=== PATIENT | male | born 2000 | race African-American/Black ===

== ENCOUNTER 2021-04-03 16:35 | Emergency (ER) | payer OTHER, SELFPAY ==
[~2021-04-03 16:35] MED LIST: Iopamidol 370 76% 100 ML VIAL ONE
[2021-04-03 17:08] LABS: Mean Corpuscular HGB CONC 33.5 g/dL (32.0-36.0); Mean Corpuscular Hemoglobin 30.2 pg (27.0-31.0); Mean Platelet Volume 7.6 fL (7.4-10.4); Platelet Count 359 thou/uL (130-400); RBC Distribution Width 10.7 % (11.5-14.5); Red Blood Cell (RBC) Count 4.99 mill/uL (4.70-6.10); White Blood Cell (WBC) Count 8.9 thou/uL (4.8-10.8)
[2021-04-03] MEDS ORDERED: Ondansetron PF 4 MG/2 ML Vial ONE (17:09)
[2021-04-03 17:11] LABS: ALT (SGPT) 20 U/L (8-55); AST (SGOT) 20 U/L (5-34); Alcohol Less than 10 mg/dL (Less than 10); Alkaline Phosphatase 77 U/L (40-110); Anion Gap 13 mmol/L (10-20); BUN (Urea Nitrogen) 10 mg/dL (8.9-20.6); Bilirubin, Total 0.4 mg/dL (0.2-1.2); Calc. Creatinine Clearance 0 mL/min (70-130); Calcium 9.6 mg/dL (7.8-10.44); Carbon Dioxide 23 mmol/L (22-29); Chloride 104 mmol/L (98-107); Globulin 3.4 g/dL (2.4-3.5); Glucose 121 mg/dL (70-105); Lipase 40 U/L (8-78); Potassium 3.4 mmol/L (3.5-5.1); Protein, Total 7.4 g/dL (6.0-8.3); Sodium 137 mmol/L (136-145)
[2021-04-03 17:19] LABS: INR-International Normal Ratio 1.1; PTT 26.2 sec (22.9-36.1); Prothrombin Time 13.8 sec (12.0-14.7)
[2021-04-03 17:34] LABS: Eosinophils 3 % (0-10); Lymphocytes 50 % (21-51); MDiff Complete? YES; Monocytes 1 % (0-10); Neutrophil 46 % (42-75)
[2021-04-03] MEDS ORDERED: traMADol HCl 50 MG TAB ONE (19:13)
== END 2021-04-03 19:20 | disposition home or self-care (01) ==
LOC: NAV ERS 16:35
DX: S20.211A Contusion of right front wall of thorax, initial encounter (principal); F17.210 Nicotine dependence, cigarettes, uncomplicated; V86.65XA Passenger of 3- or 4- wheeled all-terrain vehicle (ATV) injured in nontraffic accident, initial encounter
CPT/HCPCS: 71045; 71260; 72170; 74177; 80053; 80307; 83690; 85025; 85610; 85730; 94760; 94799; 96374; J2405; Q9967

== ENCOUNTER 2022-12-18 21:19 | Emergency (ER) | payer BC, SELFPAY ==
[2022-12-18] MEDS ORDERED: Acetaminophen 500 MG TAB ONE (21:42)
[2022-12-18] MEDS ORDERED: Lidocaine 1% w/Epinephrine 1:100K 20 ML VIAL ONE (22:57)
== END 2022-12-19 00:50 | disposition home or self-care (01) ==
LOC: NAV ERS 21:19
DX: S01.411A Laceration without foreign body of right cheek and temporomandibular area, initial encounter (principal); F17.210 Nicotine dependence, cigarettes, uncomplicated; W55.12XA Struck by horse, initial encounter
CPT/HCPCS: 12013; 70450; 70486; 72125